=== PATIENT | male | born 1990 | race Caucasian/White ===

== ENCOUNTER 2023-04-06 11:56 | Emergency (ER) | payer OTHER ==
[2023-04-06 12:11] VITALS: BP 111/75; PULSE 71; RESP 18; TEMP 98.3; BMI 23.1
[2023-04-06] MEDS ORDERED: FLUORESCEIN NA 1 EA STRIP OD ONE (12:27)
[2023-04-06] MEDS ORDERED: TETRACAINE 0.5% OPHTH SOLN 2 ML BOTTLE OD ONE (12:27)
[2023-04-06] MEDS ORDERED: AMOX TR/POT CLAV 875MG/125MG TABLETS (FP) PO ONE (13:05)
[2023-04-06] MEDS ORDERED: AMOX TR/POT CLAV 875MG/125MG TABLETS (FP) ONE (13:23)
== END 2023-04-06 14:00 | disposition home or self-care (01) ==
LOC: JERFT 11:56 → JER 11:56 → JERFT 14:00
DX: S01.102A Unspecified open wound of left eyelid and periocular area, initial encounter (principal); W55.03XA Scratched by cat, initial encounter
CPT/HCPCS: 99283-25